=== PATIENT | female | born 1970 | race Caucasian/White ===

== ENCOUNTER 2016-07-20 19:44 | Emergency (ER) | payer MEDICAID ==
[2016-07-20 20:33] LABS: BASOPHIL# 0.1 X 10^3uL (0.0-0.1); EOSINOPHILS 1.2 % (0.0-6.0); EOSINOPHILS# 0.1 X 10^3uL (0.0-0.4); HEMATOCRIT 44.3 % (36.0-48.0); LYMPHOCYTES# 1.2 X 10^3uL (0.8-3.8); MEAN CELL VOLUME 90.3 fL (80.0-100.0); MEAN CORPUS. HGB CONCENTRATION 33.9 g/dL (32.0-36.0); MEAN CORPUSCULAR HEMOGLOBIN 30.6 pg (29.0-35.0); MEAN PLATELET VOLUME 7.5 fL (7.4-10.4); MONOCYTES# 0.6 X 10^3uL (0.2-1.0); NEUTROPHILS 72.8 % (54.0-75.0); NEUTROPHILS# 4.9 X 10^3uL (2.6-6.7); PLATELET COUNT 251 X 10^3uL (130-440); RED BLOOD COUNT 4.91 X 10^6uL (4.20-6.10); RED CELL DISTRIBUTION WIDTH 12.7 % (11.5-14.5); WHITE BLOOD COUNT 6.9 X 10^3uL (3.9-10.7)
[2016-07-20] MEDS ORDERED: METOCLOPRAMIDE HCL 10 MG/2 ML VIAL ONE (20:35)
[2016-07-20] MEDS ORDERED: DIPHENHYDRAMINE 50 MG/ML VIAL ONE (20:35)
[2016-07-20] MEDS ORDERED: LORazepam 2 MG/ML INJ ONE (20:36)
[2016-07-20 20:40] LABS: ALBUMIN 3.9 g/dL (3.5-5.0); ALKALINE PHOSPHATASE 53 U/L (38-126); ALT 36 U/L (9-52); AST 14 U/L (14-36); BILIRUBIN, DIRECT 0.1 mg/dL (0.0-0.4); BILIRUBIN, TOTAL 0.6 mg/dL (0.2-1.3); BLOOD UREA NITROGEN 13 mg/dL (7-17); CALCIUM 8.6 mg/dL (8.4-10.2); CHLORIDE 106 mmol/L (98-107); CREATININE 0.7 mg/dL (0.5-1.0); EST GLOMERULAR FILTRATION RATE > 60 mL/min; GLUCOSE 103 mg/dL (70-100); LIPASE 40 U/L (23-300); POTASSIUM 3.5 mmol/L (3.5-5.1); SODIUM 136 mmol/L (137-145); TOTAL PROTEIN 6.9 g/dL (6.3-8.2)
--- NOTE | 2016-07-20 21:36 | ER PHYSICIAN DOCUMENTATION ---
Physician Documentation [facility] Name:Sarah Garcia Age:46 yrs Sex:Female :1970 Arrival Date:07/20/2016 Time:19:44 Bed4 Private MD:Manan Chen ED, John Disposition: 07/20/16 21:15 Discharged to Home/Self Care. Impression: Vomiting, Dehydration. - Condition is Good. - Discharge Instructions: cyclic vomiting syndrome - VOMITING (4y-Adult). - Prescriptions for Reglan 10 mg Oral Tablet - take 1 tablet by ORAL route every 6 hours take 30 minutes before meals and at bedtime; 20 tablet. - Medical Reconciliation form form. - Follow up: [facility]; When: Tomorrow; Reason: Continuance of care. Follow up: Luis Enrique De Paz MD; When: Tomorrow; Reason: Continuance of care. - Problem is new. - Symptoms have improved. HPI: 07/20 20:00 This 46 yrs old Female presents to ER via Private Vehicle with complaints of jm Nausea/Vomiting. 20:00 The patient presents to the emergency department with nausea, with vomiting, with jm associated abdominal pain, of the right lower quadrant and left lower quadrant, described as dull. Onset: The symptom(s)/episode began/occurred 3 month(s) ago. Possible causes: unknown. Associated signs and symptoms: Pertinent negatives: fever, nausea. Severity of symptoms: in the emergency department the symptoms are unchanged. The patient has experienced similar episodes in the past. The patient has been recently seen by a physician: the patient's primary care provider, Dr. Galvan, nearly everyday for the same issues. Pt said she was fed up with feeling this way for so long, so she came her to get answers. . Historical: - Allergies: No known drug Allergies; - Home Meds: 1. Albuterol Inhl 2. Advil Oral 3. omeprazole Oral 4. Flovent Inhl - PMHx: COPD; - PSHx: HERNIA REPAIR; Vaginal hysterectomy; Tubal ; - Tetanus: unknown. - Ebola Screening: : No symptoms or risks identified at this time. . - Immunization history: Flu Vaccine unknown. - Social history: Smoking status: Patient uses tobacco products and is smoker, current status unknown. Patient uses marijuana Patient/guardian denies using alcohol. ROS: 20:00 Constitutional: Negative for fatigue, fever. jm 20:00 Abdomen/GI: Positive for abdominal pain, nausea, vomiting, Negative for diarrhea. 20:00 Psych: Positive for drug dependence, marijuana addiction. . 20:00 All other systems are negative. Exam: 20:00 Constitutional: The patient appears alert, awake, comfortable. 20:00 Cardiovascular: Rate: normal, Rhythm: regular. 20:00 Respiratory: the patient does not display signs of respiratory distress, Respirations: normal. 20:00 Abdomen/GI: Bowel sounds: normal, Palpation: mild abdominal tenderness, in all quadrants. 20:00 Neuro: Mentation: is normal, Gait: is steady. Vital Signs: 19:46 BP 108 / 52; Pulse 60; Resp 16; Temp 97.7; Pulse Ox 93% on R/A; Weight 59.87 kg; Height em1 5 ft. 0 in. (152.40 cm); Pain 8/10; 20:00 BP 108 / 69; Pulse 59; Resp 16; Pulse Ox 92% ; ma 20:30 BP 93 / 51; Pulse 61; Pulse Ox 91% on R/A; ma 19:46 Body Mass Index 25.78 (59.87 kg, 152.40 cm) em1 MDM: 19:47 Patient medically screened. 20:00 Differential diagnosis: non specific abd pain. CVS. Data reviewed: vital signs, nurses notes, old medical records, lab test result(s), and as a result, I will discharge patient. Counseling: I had a detailed discussion with the patient and/or guardian regarding: the historical points, exam findings, and any diagnostic results supporting the discharge/admit diagnosis, lab results, the need for outpatient follow up, with the patient's primary care provider, a flow machine operator. Medication response: The patient's symptoms have improved. 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 . 07/20 20:35 Order name: CBC AUTO DIF, MDIF/RMOR IF IND; Complete Time: 20:42 EDMS 07/20 20:42 Order name: BASIC METABOLIC PANEL; Complete Time: 20:42 EDMS 07/20 20:42 Order name: HEPATIC PANEL; Complete Time: 20:42 EDMS 07/20 20:42 Order name: LIPASE; Complete Time: 20:42 EDMS 03/15 20:07 Order name: Iv Saline Lock; Complete Time: 20:36 Dispensed Medications: 20:07 Drug: NS 0.9% 1000 ml; Volume: 1000 ml; Route: IV; Rate: bolus; Site: left hand; wa Delivery: [place] [facility]; 21:00 Follow up: IV Status: Completed infusion; IV Intake: 1000ml ma 20:25 Drug: Ativan 0.5 mg; Route: IVP; Rate: per protocol; Infused Over: 3 mins; Site: left wa hand; 21:00 Follow up: Response: No adverse reaction; Marked relief of symptoms ma 20:30 Drug: Benadryl 12.5 mg; Route: IVP; Rate: per protocol; Infused Over: 3 mins; Site: wa left hand; 21:00 Follow up: Response: No adverse reaction; Marked relief of symptoms ma 20:35 Drug: Reglan 5 mg; Route: IVP; Rate: per protocol; Infused Over: 5 mins; Site: left wa hand; 21:00 Follow up: Response: No adverse reaction; Marked relief of symptoms ma Signatures: Eloisa King, RN RN Manan Dumont MD MD jm
--- NOTE | 2016-07-20 21:36 | ER NURSING DOCUMENTATION ---
Nurse's Notes Name:Sarah Garcia Age:46 yrs Sex:Female :1970 Arrival Date:07/20/2016 Time:19:44 Bed4 Private MD:Manan Chen Diagnosis:Vomiting;Dehydration Presentation: 07/20 19:53 Presenting complaint: Patient states: Pt describes abd pain across tano radiating up ma into chest States vomits almost everything she eats for several months States has seen a doctor every day for 2 weeks. Transition of care: Home. 19:53 Method Of Arrival: Private Vehicle ma 19:53 Acuity: ROGER 3 ma Triage Assessment: 19:59 General: Appears in no apparent distress, unkempt, Behavior is cooperative. Pain: ma Complains of pain in right upper quadrant and left upper quadrant. GI: Reports lower abdominal pain, intolerance of food, nausea, vomiting, since Several months. Historical: - Allergies: No known drug Allergies; - Home Meds: 1. Albuterol Inhl 2. Advil Oral 3. omeprazole Oral 4. Flovent Inhl - PMHx: COPD; - PSHx: HERNIA REPAIR; Vaginal hysterectomy; Tubal ; - Tetanus: unknown. - Ebola Screening: : No symptoms or risks identified at this time. . - Immunization history: Flu Vaccine unknown. - Social history: Smoking status: Patient uses tobacco products and is smoker, current status unknown. Patient uses marijuana Patient/guardian denies using alcohol. Screenin:00 Infectious Disease Risk None. Abuse screen: Denies threats or abuse. Nutritional ma screening: No deficits noted. Assessment: 20:00 GI: Abdomen is flat, Abd is soft. ma 21:15 Reassessment: Patient states feeling better. Patient states symptoms have improved. ma Patient appears in no apparent distress at this time. Vital Signs: 19:46 BP 108 / 52; Pulse 60; Resp 16; Temp 97.7; Pulse Ox 93% on R/A; Weight 59.87 kg; Height em1 5 ft. 0 in. (152.40 cm); Pain 8/10; 20:00 BP 108 / 69; Pulse 59; Resp 16; Pulse Ox 92% ; ma 20:30 BP 93 / 51; Pulse 61; Pulse Ox 91% on R/A; ma 19:46 Body Mass Index 25.78 (59.87 kg, 152.40 cm) em1 ED Course: 19:45 Patient arrived in ED. em2 19:45 Manan Chen is Private Physician. em2 19:47 Manan Winkler MD is Attending Physician. tessa 19:53 Eloisa King, RN is Primary Nurse. ma 19:54 Triage completed. ma 20:00 Valuables Given to family. Patient has correct armband on for positive identification. ma Placed in gown. Bed in low position. Call light in reach. Side rails up X2. Adult w/ patient. 20:18 Inserted peripheral IV: 20 gauge in left hand. ma 21:15 [facility] is Referral Physician. tessa 21:15 Discontinued IV intact, bleeding controlled, pressure dressing applied, No ma redness/swelling at site. 21:18 Luis Enrique De Paz MD is Referral Physician. Administered Medications: 20:07 Drug: NS 0.9% 1000 ml; Volume: 1000 ml; Route: IV; Rate: bolus; Site: left hand; nd Delivery: [place] [facility]; 21:00 Follow up: IV Status: Completed infusion; IV Intake: 1000ml ma 20:25 Drug: Ativan 0.5 mg; Route: IVP; Rate: per protocol; Infused Over: 3 mins; Site: left nd hand; 21:00 Follow up: Response: No adverse reaction; Marked relief of symptoms ma 20:30 Drug: Benadryl 12.5 mg; Route: IVP; Rate: per protocol; Infused Over: 3 mins; Site: nd left hand; 21:00 Follow up: Response: No adverse reaction; Marked relief of symptoms ma 20:35 Drug: Reglan 5 mg; Route: IVP; Rate: per protocol; Infused Over: 5 mins; Site: left nd hand; 21:00 Follow up: Response: No adverse reaction; Marked relief of symptoms ma Intake: 21:00 IV: 1000ml; Total: 1000ml. ma Outcome: 21:15 Discharge ordered by . tessa 21:20 Discharged to home ma 21:20 Condition: improved 21:20 Discharge instructions given to patient, significant other, Instructed on discharge instructions, follow up and referral plans. medication usage, Demonstrated understanding of instructions, medications. 21:36 Patient left the ED. ma 07/21 09:59 Discharge F/U Call: Unable to reach: left voicemail: lp Signatures: Eloisa King, RN RN Marianela Anguiano RN RN lp Meyer, John, MD MD jm [employer], [employer] em1 [employer], [employer] em2
== END 2016-07-20 21:36 | disposition home or self-care (01) ==
LOC: ER 19:44
DX: E86.0 Dehydration (principal); R11.2 Nausea with vomiting, unspecified; R10.84 Generalized abdominal pain; J44.9 Chronic obstructive pulmonary disease, unspecified; F17.210 Nicotine dependence, cigarettes, uncomplicated; F12.20 Cannabis dependence, uncomplicated; Z79.899 Other long term (current) drug therapy
CPT/HCPCS: 80048; 80076; 83690; 85025; 96361; 96374; 96375; 99283; J1200; J2060; J2765

== ENCOUNTER 2016-09-15 03:17 | Emergency (ER) | payer MEDICAID, OTHER ==
--- NOTE | 2016-09-15 03:40 | ER PHYSICIAN DOCUMENTATION ---
Physician Documentation [facility] Name:Sarah Garcia Age:46 yrs Sex:Female :1970 Arrival Date:09/15/2016 Time:03:17 Bed6 Private MD: Joseph Segura Disposition: 09/15/16 03:34 Discharged to Home/Self Care. Impression: Ankle Sprain - : Left. - Condition is Good. - Discharge Instructions: Ankle - SPRAIN ANKLE (w/ x-ray). - Medical Reconciliation form form. - Follow up: Private Physician; When: 7 - 10 days; Reason: Recheck today's complaints, Continuance of care. - Problem is new. - Symptoms have improved. HPI: 09/15 03:20 This 46 yrs old Female presents to ER via Walk In with complaints of Ankle cd Injury - Left. 03:20 The patient presents with an injury. The complaints affect the left ankle. Onset: The cd symptom(s)/episode began/occurred acutely, just prior to arrival. Context: The problem was sustained at work, resulted from a mis-step by the patient, on steps, The mechanism of injury involved inversion of the affected ankle. The patient can fully bear weight on the affected extremity. the patient is able to ambulate. Associated signs and symptoms: The patient has no apparent associated signs or symptoms. Historical: - Allergies: No known drug Allergies; - Home Meds: 1. Albuterol Inhl 2. Advil Oral 3. omeprazole Oral 4. Flovent Inhl - PMHx: COPD; - PSHx: HERNIA REPAIR; Vaginal hysterectomy; Tubal ; - Tetanus: < 10 years. - Ebola Screening: : Patient negative for fever greater than or equal to 101.5 degrees Fahrenheit, and additional compatible Ebola Virus Disease symptoms. - Immunization history: Flu Vaccine >1 year. - Social history: Smoking status: Patient states former smoker of tobacco. ROS: 03:25 MS/extremity: Positive for tenderness, Negative for decreased range of motion, cd deformity, ecchymosis, swelling. 03:25 All other systems are negative. Exam: 03:30 Constitutional: The patient appears in no acute distress, alert, awake, well developed, cd well nourished. 03:30 Musculoskeletal/extremity: Extremities: grossly normal except: tenderness, ROM: no acute changes, Circulation is intact in all extremities. Sensation intact. Calcaneus exam normal. 03:30 Skin: Exam negative for acute changes. Vital Signs: 03:23 BP 126 / 47 RA Sitting (auto/reg); Pulse 99 LA; Resp 16 S; Temp 98.1(O); Pulse Ox 92% em3 on R/A; Weight 58.97 kg (R); Height 5 ft. 0 in. (152.40 cm) (R); Pain 8/10; 03:23 Body Mass Index 25.39 (58.97 kg, 152.40 cm) em3 MDM: 03:24 Patient medically screened. cd 03:30 Differential diagnosis: fracture, sprain. cd 03:35 Data reviewed: vital signs, nurses notes, old medical records, radiologic studies, cd plain films, and as a result, I will discharge patient. Counseling: I had a detailed discussion with the patient and/or guardian regarding: the historical points, exam findings, and any diagnostic results supporting the discharge/admit diagnosis, radiology results, the need for outpatient follow up, for a recheck, with the patient's primary care provider, to return to the emergency department if symptoms worsen or persist or if there are any questions or concerns that arise at home. 09/15 03:35 Order name: ANKLE; 3[place] [id number] EDDC 09/15 08:40 Order name: ANKLE; 3[place] [id number]; Complete Time: 21:42 [facility] 09/16 21:42 Interpretation: Normal: See Report. 09/15 03:26 Order name: ORTHO: Ice Pack; Complete Time: 03:26 Dispensed Medications: No medications were administered Signatures: Joseph Alicia MD MD Daphne Mukherjee
--- NOTE | 2016-09-15 03:40 | ER NURSING DOCUMENTATION ---
Nurse's Notes [facility] Name:Sarah Garcia Age:46 yrs Sex:Female :1970 Arrival Date:09/15/2016 Time:03:17 Bed6 Private MD: Diagnosis:Ankle Sprain-: Left Presentation: 09/15 03:19 Acuity: ROGER 4 rh 03:23 Presenting complaint: Patient states: Pt tripped and fell down a stair at work and rh rolled the left ankle. Transition of care: Home. 03:23 Method Of Arrival: Walk In Triage Assessment: 03:24 General: Appears in no apparent distress, Behavior is cooperative. Pain: Complains of rh pain in left lateral ankle. Neuro: Level of Consciousness is awake, alert, obeys commands, Oriented to person, place, time, event. Cardiovascular: Capillary refill < 3 seconds. Respiratory: Airway is patent Respiratory effort is even, unlabored. GI:. Musculoskeletal: Circulation, motion, and sensation intact Capillary refill < 3 seconds Pt able to ambulate on the affected ankle. Historical: - Allergies: No known drug Allergies; - Home Meds: 1. Albuterol Inhl 2. Advil Oral 3. omeprazole Oral 4. Flovent Inhl - PMHx: COPD; - PSHx: HERNIA REPAIR; Vaginal hysterectomy; Tubal ; - Tetanus: < 10 years. - Ebola Screening: : Patient negative for fever greater than or equal to 101.5 degrees Fahrenheit, and additional compatible Ebola Virus Disease symptoms. - Immunization history: Flu Vaccine >1 year. - Social history: Smoking status: Patient states former smoker of tobacco. Screenin:25 Infectious Disease Risk None. Abuse screen: Denies threats or abuse. Denies injuries rh from another. Nutritional screening: No deficits noted. Assessment: 03:25 See Triage Assessment done by same RN. Vital Signs: 03:23 BP 126 / 47 RA Sitting (auto/reg); Pulse 99 LA; Resp 16 S; Temp 98.1(O); Pulse Ox 92% em3 on R/A; Weight 58.97 kg (R); Height 5 ft. 0 in. (152.40 cm) (R); Pain 8/10; 03:23 Body Mass Index 25.39 (58.97 kg, 152.40 cm) em3 ED Course: 03:18 Patient arrived in ED. em3 03:19 Daphne Mukherjee is Primary Nurse. 03:19 Triage completed. 03:20 Notified ED Physician of patient's arrival and chief complaint. Dr. Alicia notified. 03:24 Joseph Alicia MD is Attending Physician. cd 03:24 Valuables Remains with patient Patient has correct armband on for positive em3 identification. Bed in low position. Call light in reach. Side rails up X 1. Ice pack to injury. Elevated left leg. 03:34 Port Xray Completed. kush 03:35 ANKLE; 3[place] [id number] In Process Unspecified. EDMS 03:35 Trever wrap to left ankle. Administered Medications: No medications were administered Outcome: 03:34 Discharge ordered by . cd 03:39 Discharged to home ambulatory, with significant other. 03:39 Condition: improved 03:39 Discharge Assessment: Patient awake, alert and oriented x 3. No cognitive and/or functional deficits noted. Patient verbalized understanding of disposition instructions. 03:39 Discharge instructions given to patient, significant other, Instructed on discharge instructions, follow up and referral plans. [facility] Demonstrated understanding of instructions. 03:40 Patient left the ED. 05 14:12 Discharge F/U Call: Unable to reach: left voicemail: sj Signatures: Dispatcher [employer] Joseph Casarez MD MD cd Abbott, Shey Gallegos, Koffi em3 Daphne Mukherjee Amie Wade
--- NOTE | 2016-09-15 08:26 | RADIOLOGY REPORT ---
Three views of the left ankle demonstrate no displaced fracture, dislocation or subluxation. The visualized joints appear unremarkable. IMPRESSION: No displaced injury is identified. If clinically indicated, further evaluation and/or follow-up may be of benefit. STEPHANIE
== END 2016-09-15 03:40 | disposition home or self-care (01) ==
LOC: ER 03:17
DX: S96.912A Strain of unspecified muscle and tendon at ankle and foot level, left foot, initial encounter (principal); W18.49XA Other slipping, tripping and stumbling without falling, initial encounter; Y92.512 Supermarket, store or market as the place of occurrence of the external cause; Y93.01 Activity, walking, marching and hiking; Y99.0 Civilian activity done for income or pay
CPT/HCPCS: 99283